=== PATIENT | female | born 1980 | race Caucasian/White ===

== ENCOUNTER → 2020-09-19 | Day surgery (SDC) | payer OTHER ==
[~2020-09-19] MED LIST: ANAPROX DS550 MG PO; PERCOCET 5-3251 EACH PO; SAXENDA PO; VENTOLIN HFA 66.7 GM INH
[2020-09-19 10:39] LABS: HEMOGLOBIN 10.7 gm/dl (12.3-15.3); RED BLOOD COUNT 3.71 M/UL (4.00-5.10); WHITE BLOOD COUNT 9.9 K/UL (4.5-11.0)
== END | disposition home or self-care (01) ==
LOC: OR 09:29
PROVIDERS: Obstetrics & Gynecology
DX: N84.0 Polyp of corpus uteri (principal); M19.90 Unspecified osteoarthritis, unspecified site; F32.9 Major depressive disorder, single episode, unspecified; J45.909 Unspecified asthma, uncomplicated; K21.9 Gastro-esophageal reflux disease without esophagitis; E28.2 Polycystic ovarian syndrome; Z79.899 Other long term (current) drug therapy
CPT/HCPCS: 36415; 81001; 84703; 85025; J1100; J1885; J2001; J2250; J2405; J2704; J3010; J7030; J7120